=== PATIENT | female | born 1955 | race Caucasian/White ===

== ENCOUNTER 2023-04-08 08:47 | Outpatient (RCR) | payer OTHER, SELFPAY | END 2023-05-16 17:00 | disposition home or self-care (01) | LOC: HO.WCC 08:47 | PROVIDERS: PCP Internal Medicine; Referring Provider Internal Medicine; Visit Provider Physician Assistant | DX: I87.332 Chronic venous hypertension (idiopathic) with ulcer and inflammation of left lower extremity (principal); L97.822 Non-pressure chronic ulcer of other part of left lower leg with fat layer exposed; I89.0 Lymphedema, not elsewhere classified; I10 Essential (primary) hypertension | CPT/HCPCS: 11042; 11045; 97597; 99212 ==